=== PATIENT | male | born 1970 | race African-American/Black ===

== ENCOUNTER → 2018-03-09 | Day surgery (SDC) | payer OTHER ==
[~2018-03-09] MED LIST: LIDOCAINE 1% PF 2 ML VIAL. ID; LIDOCAINE 2% PF Vial for OR 5 ML VIAL.; MIDAZOLAM HCL/PF 2 MG/2 ML VIAL. IV; PROPOFOL 20 ML IV; fentaNYL PF VIAL 100 MCG/2 ML VIAL IV
[2018-03-09] MEDS: IV RINGERS,LACTATED 1000ML 1,000 ML IV (10:55)
== END | disposition home or self-care (01) ==
LOC: SURG 09:53
DX: K21.0 Gastro-esophageal reflux disease with esophagitis (principal); K22.8 Other specified diseases of esophagus; Z87.09 Personal history of other diseases of the respiratory system
CPT/HCPCS: 43239; 88305; J2704

== ENCOUNTER → 2018-03-26 | Outpatient (CLI) | payer OTHER | END | disposition home or self-care (01) | LOC: NM 09:43 | DX: R10.84 Generalized abdominal pain (principal) | CPT/HCPCS: 78264; A9541 ==

== ENCOUNTER → 2018-04-21 | Outpatient (CLI) | payer OTHER ==
[2018-04-21] MEDS: IOHEXOL 240 MG/ML 50ML VIAL. IV (08:30)
[2018-04-21] MEDS: IOHEXOL 300 MG/ML 100ML VIAL. IV (09:37)
== END | disposition home or self-care (01) ==
LOC: CT 08:12
DX: D17.71 Benign lipomatous neoplasm of kidney (principal); N28.1 Cyst of kidney, acquired; Z87.09 Personal history of other diseases of the respiratory system
CPT/HCPCS: 74177; Q9966; Q9967

== ENCOUNTER → 2018-05-06 | Outpatient (CLI) | payer OTHER ==
[2018-05-06] MEDS: SINCALIDE 1.3 MCG in IV NORMAL SALINE 50ML 30 ML IV (09:16)
== END | disposition home or self-care (01) ==
LOC: NM 11:11
DX: R10.10 Upper abdominal pain, unspecified (principal)
CPT/HCPCS: 78226; 96374; 96375; A9537; J2805

== ENCOUNTER → 2018-09-21 | Outpatient (CLI) | payer OTHER ==
[2018-03-09 12:00] VITALS: BP 109/68
[~2018-09-21] MED LIST changes: +EFAV1TAB PO; -LIDOCAINE 1% PF 2 ML VIAL. ID; -LIDOCAINE 2% PF Vial for OR 5 ML VIAL.; -MIDAZOLAM HCL/PF 2 MG/2 ML VIAL. IV; -PROPOFOL 20 ML IV; -fentaNYL PF VIAL 100 MCG/2 ML VIAL IV
[2018-09-21 12:20] LABS: BARBITURATES NEG (NEG); BENZODIAZEPINES NEG (NEG); CANNABINOIDS NEG (NEG); COCAINE NEG (NEG); METHADONE NEG (NEG); OPIATES NEG (NEG); PHENCYCLIDINE NEG (NEG)
[2018-09-21 12:23] LABS: AMPHETAMINE/METHAMPHETAMINE NEG (NEG)
[2018-09-21 12:33] LABS: ALBUMIN/GLOBULIN RATIO 1.1 (1.0-1.7); CALCIUM 8.8 mg/dL (8.5-10.1); CREATININE 1.2 mg/dL (0.7-1.3); GFR 77.9; POTASSIUM 3.7 mmol/L (3.5-5.1); TOTAL BILIRUBIN 0.7 mg/dL (0.2-1.0); TOTAL PROTEIN 7.5 g/dL (6.4-8.2)
== END | disposition home or self-care (01) ==
LOC: LAB 11:52
PROVIDERS: ATTEND Psychiatry & Neurology Neurology
DX: R29.898 Other symptoms and signs involving the musculoskeletal system (principal)
CPT/HCPCS: 36415; 80053; 80307

== ENCOUNTER → 2019-08-23 | Outpatient (CLI) | payer OTHER ==
[2018-03-09 12:00] VITALS: BP 109/68
--- NOTE | 2019-08-23 16:25 | KCIC ---
EXAM: Dual energy x-ray absorptiometry (DEXA). HISTORY: Osteoporosis. Hip pain. TECHNIQUE: Dual energy x-ray absorptiometry of the lumbar spine and the left hip was performed. T-score of average bone mineral density based was calculated based on standard deviations above or below the expected young adult normal value. Diagnostic definitions were established by the World Health Organization. FINDINGS: The average bone mineral density associated with L1-L4 is 0.980 g/cm^2, corresponding with a T-score of -1.0. The average total bone mineral density associated with the left hip is 0.696 g/cm^2, corresponding with a T-score of -2.2. No comparison examinations are available. Refer to the worksheets for full detail. IMPRESSION: 1. Osteopenia. Average bone mineral density yields a T-score between -1.0 and -2.5. Fracture risk is increased. Electronically signed by: Erika Ochoa MD (08/23/2019 4:22 PM) [facility]
== END | disposition home or self-care (01) ==
LOC: KCIC DEXA 14:41
PROVIDERS: ATTEND Family Medicine
DX: M85.88 Other specified disorders of bone density and structure, other site (principal); M81.0 Age-related osteoporosis without current pathological fracture
CPT/HCPCS: 77080

== ENCOUNTER → 2020-11-23 | Outpatient (CLI) | payer OTHER ==
[2018-03-09 12:00] VITALS: BP 109/68
[~2020-11-23] MED LIST changes: +IBUP-1060 PO; +vitamin d3
--- NOTE | 2020-11-23 12:30 | PDOC1 ---
INITIAL PAIN CONSULT DATE OF SERVICE: DOS: DATE: 11/23/20 TIME: 12:22 CHIEF COMPLAINT: Chief Complaint: Neck pain bilateral shoulder pain upper back pain mid back pain and low back pain HISTORY OF PRESENT ILLNESS: 49-year-old male presents history of pain base the neck and shoulders upper back mid back and low back for about 3 months without any specific injury or accident that he is aware of, but patient reports the pain just began in about August 2020 and got worse especially in the base of the neck and shoulders with pain in the low back as well as bilateral ankles which he said he has had for years and attributed to some arthritic conditions in his ankles. Patient has tried multiple [id number] medications such as ibuprofen and Tylenol Naprosyn and trigger point injections 2008 which were very helpful also has had chiropractic treatment which is ongoing as well as exercise which is ongoing and is doing stretching strength exercises also heat applications the neck and shoulders upper back mid back and the low back as well as the ankles. Patient continues to take ibuprofen it was not helping much at this point. Patient rates his disability rating 0-10 10 being the worst is a 6 female responsibilities 5 with recreational activities social activity sexual behavior 7 with occupational behavior and self-care activities and 8 with life support activity specially sleeping. Patient ports disturbs his sleep at least 2 times a night does not affect his bowel bladder control but does affect his ability to walk stand and perform any physical activities. 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 Patient has had no diagnostic studies at this time including x-rays or MRIs. PAST MEDICAL HISTORY: PMH: Arthritis PREVIOUS SURGERIES: Past Surgical Hx: Dental surgery CURRENT MEDICATIONS: Current Meds: Active Scripts Medications Dose Route/Sig Max Daily Dose Days Date Category [vitamin d3] 1,000 11/23/20 Reported Ibuprofen 800 Mg Tablet 800 Mg PO PRN Q6HRS PRN 11/23/20 Reported Atripla Tablet (Efavirenz/Emtricitab/Tenofovir) 1 Each Tablet 1 Each PO 03/09/18 Reported ALLERGIES; Allergies: Coded Allergies: No Known Drug Allergies (Unverified , 03/09/18) FAMILY HISTORY: Family Hx: Prostate cancer patient's father SOCIAL HISTORY: Social Hx: Patient does not drink alcohol does not smoke or use any illegal illicit recreational drugs is single lives locally with his family in [facility]. 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 REVIEW OF SYSTEMS: ROS: Positive for those items mentioned in history of present illness, all systems are reviewed, otherwise negative ,and are complete full and well-documented on patient's chart. PHYSICAL EXAM: VS: Blood pressure is 120/86 pulse 88 respirations are 16 temp 89.7 F, height is 5 foot 8 inches, weight 159 pounds PE: PHYSICAL EXAMINATION: GENERAL: The patient is awake, alert, oriented, appropriate, very pleasant demeanor HEENT: Shows normocephalic, atraumatic. Extraocular movements are intact and symmetrical. Oral cavity: Mucous membranes moist and pink. Dentition is intact. NECK: Shows anterior throat supple without palpable lymphadenopathy noted. Swallow reflex symmetrical. CHEST: Shows normal on inspection. Breath sounds are clear bilaterally, no rales rhonchi wheezes auscultated. HEART: Shows S1, S2 clear. No murmurs auscultated. ABDOMEN: Soft, nontender, nondistended, flat. No palpable organomegaly is noted. BACK: Shows spine grossly in the midline. Normal-appearing cervical lordotic curvature. Cervical spine shows full rotation motion both laterally as well as full extension full forward flexion without significant increase in pain. Cervical paraspinous muscles show symmetrical with inspection on palpation is a very firm ropelike musculature in the upper and middle as well as the lower distribution the paraspinous musculature very firm consistent with trigger point areas of musculature bilaterally. Also into the superior medial trapezius and the rhomboid has very firm ropelike musculature as well less tender but still significantly tender with palpation consistent with trigger point areas of musculature in these distributions as well bilaterally. There is slightly increased thoracic kyphosis, some minor flattening of the lumbar lordotic curvature. Lumbar paraspinous muscles show symmetrical on inspection, on palpation shows some moderate tenderness diffusely throughout the upper, middle and lower distribution of the paraspinous muscles bilaterally and also into the lower thoracic paraspinous musculature, tender and in the lumbar distribution shows significant tenderness and very firm ropelike musculature throughout the upper middle lower distribution the paraspinous muscles in the lumbar distribution consistent with trigger point areas of musculature but without specific radiation of pain. The patient has good rotational motion of the lumbar spine, both laterally as well as extension and flexion without significant difficulty. 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 Shoulder shrug is strong and intact without loss of strength on resistance as is abduction of the shoulders at 90 degrees bilaterally. Lower extremities show deep tendon reflexes 2+ in the patellar and tendo calcaneus tendons. Motor exam is 5 on a scale of 5 with right dorsiflexion, extension, quadriceps and hamstring flexion and 5/5 on the left. Peripheral pulses are 1+ posterior tibial. No peripheral edema is noted bilaterally. Lower extremities are warm and dry to touch, equal in color and appearance. SKIN: Shows warm and dry, good turgor. No edema. No sores, rashes or bruising throughout. IMPRESSION: Impression: 49-year-old male with 3-month history of increasing pain neck, shoulders, upper back mid back and low back consistent with myofascial pain. Plan: Options discussed with patient occluding conservative medical management continued physical therapies and interventional techniques. Patient elects interventional techniques as he has had good success with these in the past. We discussed trigger point injections of the identified musculature cervical paraspinous musculature trapezius musculature rhomboid musculature thoracic paraspinous musculature and lumbar paraspinous musculature. Patient will wait for preauthorization with his insurance provider and would like to proceed at that time. In the meantime patient will continue with stretching strength exercises heat massage applications as well. YUNIEL MAGANA MD Nov 23, 2020 12:30
== END | disposition home or self-care (01) ==
LOC: PNCL 08:34 → MERGE 09:20
PROVIDERS: ATTEND Anesthesiology
DX: M54.2 Cervicalgia (principal); M25.512 Pain in left shoulder; M25.511 Pain in right shoulder; M54.5 Low back pain; M19.90 Unspecified osteoarthritis, unspecified site; K21.9 Gastro-esophageal reflux disease without esophagitis; Z79.899 Other long term (current) drug therapy; Z98.890 Other specified postprocedural states
CPT/HCPCS: 99214; G0463

== ENCOUNTER → 2020-12-06 | Outpatient (CLI) | payer OTHER ==
[2018-03-09 12:00] VITALS: BP 109/68
[~2020-12-06] MED LIST changes: +BUPIVACAINE MPF 0.25% 10 ML VIAL. ONE; +methylPREDNISolone ACETATE 40 MG/ML VIAL. ONE
--- NOTE | 2020-12-06 10:00 | PDOC4 ---
PROCEDURE Procedure Patient was consented for trigger point injections. Risk were discussed inc luding not limited to bleeding infection possibility of intravascular injection sequelae spread local acetic numbness pneumothorax side effects of steroid medication and portal scarring pain control. Patient understands wished to proceed. Under sterileape patient in sitting position, cervical paraspinous posterior trapezius musculature thoracic paraspinous posterior as well as lumbar paraspinous muscle was sterilely prepped and draped in usual fashion. Trigger point areas were identified with palpation in all these regions and injected with 25-gauge needle after negative aspiration each injection site. Total of 14 injections with a total of 14 cc 0.25% ropivacaine as well as a total of 40 mg Depo-Medrol utilized. Patient tolerated procedure well had no complications. YUNIEL MAGANA MD Dec 06, 2020 10:00
--- NOTE | 2020-12-06 10:00 | PDOC ---
Progress Note - Pain Clinic Date of Service: DOS: DATE: 12/06/20 TIME: 09:54 Diagnosis: Dx: Myofascial pain Low back pain Cervicalgia History or Present Illness: HPI: 49-year-old male returns to follow-up status post initial evaluation preauthorization for trigger point injections. Patient is obtained that now would like to proceed. Patient reports still significant pain mid neck base of the neck bilateral shoulders and upper back as well as the lower back is essentially unchanged. Patient did try meloxicam which we had prescribed for him on his last visit and reports it helps only a small amount. Patient reports no new motor or sensory deficits or other complaint still has some ankle pain bilaterally with walking weightbearing describes the pain in the neck and shoulders upper back mid back and low back is aching radiating at times and constant. Patient reports his pain is a 7 on scale 10 is worse the past week average and least is 7 and is a 7 today. No new motor or sensory deficits no new bowel or bladder incontinence or other complaints. Physical Exam: VS: Blood pressure is 117/75 pulse 85 respirations 18 temperature 98.2 F height 5 feet 8 inches weight is 163 pounds PE: PHYSICAL EXAMINATION: GENERAL: The patient is awake, alert, oriented, appropriate, very pleasant demeanor HEENT: Shows normocephalic, atraumatic. Extraocular movements are intact and symmetrical. Oral cavity: Mucous membranes moist and pink. NECK: Shows anterior throat supple without palpable lymphadenopathy noted. CHEST: Shows normal on inspection. Breath sounds are clear bilaterally. HEART: Shows S1, S2 clear. No murmurs auscultated. ABDOMEN: Soft, nontender, nondistended. No palpable organomegaly is noted. BACK: Shows spine grossly in the midline. Normal-appearing cervical lordotic curvature. Cervical paraspinous muscles show symmetrical with inspection on palpation, show some significant tenderness and very firm ropelike musculature in the middle and lower distribution of paraspinous muscles bilaterally consistent with trigger point areas of musculature without radiation but significantly tender with palpation. This is true to the superior medial and lateral trapezius bilaterally right essentially equal to left with very firm ropelike musculature consistent with areas of trigger point muscle without radiation on palpation as well but significantly tender. Lumbar paraspinous muscles show symmetrical on inspection, on palpation shows some moderate tenderness diffusely throughout the upper, middle and lower distribution of the paraspinous muscles with very firm ropelike musculature bilaterally consistent with trigger point areas of musculature very firm very tender but without specific radiation. The patient has good rotational motion of the lumbar spine, both laterally as well as extension and flexion without significant difficulty. No tenderness over the spinous processes, sacrum or sacroiliac regions. EXTREMITIES: Lower extremities show deep tendon reflexes 2+ in the patellar and tendo calcaneus tendons. Motor exam is 5 on a scale of 5 with right dorsiflexion, extension, quadriceps and hamstring flexion and 5/5 on the left. Peripheral pulses are 1 posterior tibial. No peripheral edema is noted bilaterally. Lower extremities are warm and dry to touch, equal in color and appearance. SKIN: Shows warm and dry, good turgor. No edema. No sores, rashes or bruising throughout. Procedure: Procedure: Options were discussed with the patient. Patient will chart reviews her current medication regimen updated current review of systems updated today as well. We will proceed with trigger point injections of identified musculature in the bilateral cervical paraspinous muscle bilateral trapezius muscular bilateral thoracic paraspinous muscles or bilateral lumbar paraspinous musculature. Risks were discussed including but not limited to bleeding infection possibility of intravascular injection sequelae pneumothorax side effects steroid medication spread to local anesthetic and numbness as well as poor results regarding pain control. Patient understands wished to proceed. Patient return to clinic in approximate 4 weeks for follow-up, was counseled as to return appointment activity level and side effects to be aware of. Medication Injected: Med Injected: Under sterileape patient in sitting position, cervical paraspinous posterior trapezius musculature thoracic paraspinous posterior as well as lumbar paraspinous muscle was sterilely prepped and draped in usual fashion. Trigger point areas were identified with palpation in all these regions and injected w ith 25-gauge needle after negative aspiration each injection site. Total of 14 injections with a total of 14 cc 0.25% ropivacaine as well as a total of 40 mg Depo-Medrol utilized. Patient tolerated procedure well had no complications. Condition at Discharge: Condition at Discharge: Condition at discharge stable, patient alert procedure well had no complications. YUNIEL MAGANA MD Dec 06, 2020 09:59
== END | disposition home or self-care (01) ==
LOC: PNCL 08:56
PROVIDERS: ATTEND Anesthesiology
DX: M54.5 Low back pain (principal); M54.2 Cervicalgia; M79.10 Myalgia, unspecified site; K21.9 Gastro-esophageal reflux disease without esophagitis; Z79.899 Other long term (current) drug therapy; Z98.890 Other specified postprocedural states
CPT/HCPCS: 20553; J1030; J3490

== ENCOUNTER → 2021-01-18 | Outpatient (CLI) | payer OTHER ==
[2018-03-09 12:00] VITALS: BP 109/68
[~2021-01-18] MED LIST changes: -BUPIVACAINE MPF 0.25% 10 ML VIAL. ONE; -methylPREDNISolone ACETATE 40 MG/ML VIAL. ONE
--- NOTE | 2021-01-18 08:11 | PDOC ---
Progress Note - Pain Clinic Date of Service: DOS: DATE: 01/18/21 TIME: 08:06 Diagnosis: Dx: Myofascial pain Low back pain Cervicalgia History or Present Illness: HPI: 50-year-old male returns follow-up status post trigger point injections the bilateral cervical paraspinous muscle bilateral trapezius musculature and bilateral lumbar paraspinous muscular. Patient reports he did very well first week or so the pain was decreased significantly by about 75% the pain returned now with some colder weather we had right after the injections the patient reports that the cold weather affects it significantly and is gotten worse since that time. Patient ports still significant pain base the neck bilaterally causing headaches radiating the upper shoulders and mid back upper back as well as the low back which is very firm and stiff as well patient reports is a 7 on scale 10 at all times in the past week 7 its least worse and average is a 7 today. Patient reports pain is aching sharp dull tight specifically back of the neck and lower lumbar area significantly patient reports it wakes him sleep about once every 6 hours or so better with laying down heat application stretching. Patient reports no new motor or sensory deficits no bladder incontinence. Physical Exam: VS: Blood pressure is 130/82 pulse 79 respirations 16 temperature 98.60 Fahrenheit weight is 167 pounds. PE: PHYSICAL EXAMINATION: GENERAL: The patient is awake, alert, oriented, appropriate, very pleasant demeanor HEENT: Shows normocephalic, atraumatic. Extraocular movements are intact and symmetrical. Oral cavity: Mucous membranes moist and pink. NECK: Shows anterior throat supple without palpable lymphadenopathy noted. Swallow reflex symmetrical. CHEST: Shows normal on inspection. Breath sounds are clear bilaterally no rales rhonchi or wheezes auscultated. HEART: Shows S1, S2 clear. No murmurs auscultated. ABDOMEN: Soft, nontender, nondistended, obese. No palpable organomegaly is noted. No rebound or guarding demonstrated. BACK: Shows spine grossly in the midline. Normal-appearing cervical lordotic curvature. Cervical paraspinous muscles show symmetrical with inspection on palpation some significant tenderness in the superior middle and inferior aspect of the cervical paraspinous muscles are very firm ropelike musculature slightly worse on the left than the right and present bilaterally without specific radiation but with very firm ropelike musculature consistent with trigger point areas of musculature. This is true into the superior medial trapezius again more on the left than the right but present bilaterally without significant radiation. Patient's thoracic spine shows some moderate tenderness in the rhomboid distribution with trigger point in the superior aspect only. There is slightly increased thoracic kyphosis, some minor flattening of the lumbar lordotic curvature. Lumbar paraspinous muscles symmetrical on inspection with palpation very firm ropelike musculature throughout the upper middle lower distribution the paraspinous muscular bilaterally right equal to left without specific atrophy hypertrophy or asymmetry but with very firm ropelike musculature bilaterally very tender to palpation. The patient has good rotational motion of the lumbar spine, both laterally as well as extension and flexion without significant difficulty. No tenderness over the spinous processes, sacrum or sacroiliac regions. EXTREMITIES: Lower extremities show deep tendon reflexes 2+ in the patellar and tendo calcaneus tendons. Motor exam is 5 on a scale of 5 with right dorsiflexion, extension, quadriceps and hamstring flexion and 5/5 on the left. Peripheral pulses are 1+ posterior tibial. No peripheral edema is noted bilaterally. Lower extremities are warm and dry to touch, equal in color and appearance. Upper extremities show deep tendon reflexes 2+ in the biceps and triceps tendons, muscle strength is 5 out of 5 with title curator strength biceps and triceps flexion and equal bilaterally peripheral pulses are 2+ radial. SKIN: Shows warm and dry, good turgor. No edema. No sores, rashes or bruising throughout. Procedure: Procedure: Options were discussed with the patient. Patient chart reviews his current medication regimen updated current view of systems updated today as well. We will proceed with preauthorization for a repeat trigger point injections of the cervical paraspinous musculature trapezius musculature bilaterally and lumbar paraspinous muscles bilaterally. The meantime patient will continue with meloxicam also try Medrol Dosepak patient was given instructions well side effects aware of the use of the medications. Patient to follow-up once preauthorization is obtained we will plan on trigger point injections as outlined. Medication Injected: Med Injected: None Condition at Discharge: Condition at Discharge: Condition at discharge is stable. YUNIEL MAGANA MD Jan 18, 2021 08:11
== END | disposition home or self-care (01) ==
LOC: PNCL 07:36
PROVIDERS: ATTEND Anesthesiology
DX: M54.5 Low back pain (principal); M54.2 Cervicalgia; M79.18 Myalgia, other site; K21.9 Gastro-esophageal reflux disease without esophagitis; Z79.899 Other long term (current) drug therapy; Z98.890 Other specified postprocedural states
CPT/HCPCS: 99212; G0463

== ENCOUNTER → 2022-01-02 | Outpatient (CLI) | payer OTHER ==
[2018-03-09 12:00] VITALS: BP 109/68
--- NOTE | 2022-01-02 09:21 | KCIC ---
Bone Densitometry History: Reason: OSTEOPORSIS / Spl. Instructions: / History: Comparison: Bone density 08/23/2019. Findings: Bone Densitometry was performed with dual photon absorption of the lumbar spine and left proximal fem ur. Lumbar Spine: Bone density is 1.041 g/cm2 for L1-L4. T-score is -0.5. Z-score is -1.0. The bone mineral density has increased by 6.2% since the prior study. Left total femur: Bone density is 0.772 g/cm2. T-score is -1.7. Z-score is -1.6. The bone mineral density has increased by 11% since the prior study. IMPRESSION: 1. There is normal bone mineral density of the lumbar spine. 2. There is osteopenia of the left total femur. World Health Organization definition of osteoporosis and osteopenia for women: normal equal s T score at or above -1.0 standard deviations; osteopenia equals T score between -1.0 and -2.5 stand pradeep deviations; osteoporosis equals T score at or below -2.5 standard deviations. Electronically signed by: Adriel Enamorado MD (01/02/2022 9:18 AM) [id number]
== END ==
LOC: KCIC DEXA 07:43
PROVIDERS: ATTEND Internal Medicine
DX: M85.88 Other specified disorders of bone density and structure, other site (principal)
CPT/HCPCS: 77080